=== PATIENT | male | born 1925 | race Caucasian/White ===

== ENCOUNTER 2016-03-25 19:58 | Inpatient (IN) | payer MEDICARE, BC ==
[~2016-03-25] VITALS: Ht 175.3 cm; Wt 76.7 kg
[2016-03-25 20:44] VITALS: BP 138/62
[2016-03-25 20:59] LABS: BASOPHILS % (AUTO) 1.2 % (0.0-2.0); EOSINOPHILS % (AUTO) 0.9 % (0.0-3.0); LYMPHOCYTES % (AUTO) 5.2 % (20.0-45.0); MEAN CORPUSCULAR HEMOGLOBIN 31.7 PG (27.0-31.0); MEAN CORPUSCULAR HGB CONC 32.4 G/DL (32.0-36.0); MEAN CORPUSCULAR VOLUME 98 FL (80-99); MEAN PLATELET VOLUME 7.5 FL (6.5-10.1); MONOCYTES % (AUTO) 13.7 % (1.0-10.0); PLATELET COUNT 219 K/UL (150-450); RED BLOOD COUNT 3.08 M/UL (4.70-6.10); RED CELL DISTRIBUTION WIDTH 18.8 % (11.6-14.8); WHITE BLOOD COUNT 13.1 K/UL (4.8-10.8)
[2016-03-25 21:16] LABS: TROPONIN I < 0.30 ng/mL (<=0.30)
[2016-03-25 21:21] LABS: ALANINE AMINOTRANSFERASE 20 U/L (3-41); ALBUMIN/GLOBULIN RATIO 1.4 (1.0-2.7); ANION GAP 17 (5-15); ASPARTATE AMINO TRANSFERASE 43 U/L (5-40); CALCIUM 8.7 mg/dL (8.6-10.2); CARBON DIOXIDE 21 mEQ/L (20-30); CHLORIDE 88 mEQ/L (98-107); CREATININE 1.3 mg/dL (0.7-1.2); HEMOLYSIS 140; SODIUM 126 mEQ/L (135-145)
[2016-03-25 21:31] LABS: CKMB < 1.5 ng/mL (< 6.7)
[2016-03-25 21:39] LABS: POTASSIUM 4.8 mEQ/L (3.4-4.9)
[2016-03-25 22:19] LABS: APPEARANCE,URINE CLEAR; KETONES,URINE NEGATIVE (NEGATIVE); LEUKOCYTE ESTERASE ,URINE NEGATIVE (NEGATIVE); NITRITE,URINE NEGATIVE (NEGATIVE); PH,URINE 6 (4.5-8.0); PROTEIN,URINE 2+ (NEGATIVE); UROBILINOGEN,URINE NORMAL MG/DL (0.0-1.0)
[2016-03-25] MEDS ORDERED: Tubing IV Secondary IV ONE (22:26)
[2016-03-25] MEDS ORDERED: NS 275ml ONE (22:26)
[2016-03-25 22:36] LABS: BACTERIA,URINE FEW /HPF; RBC,URINE 0-2 /HPF (0 - 0); WBC,URINE 0-2 /HPF (0 - 0)
[2016-03-25] MEDS ORDERED: Oseltamivir 75mg cap ORAL ONE (22:45)
[2016-03-25] MEDS ORDERED: Acetaminophen 650 MG SUPP RECTAL PRN ×2 (23:00)
[2016-03-25] MEDS ORDERED: Nitroglycerin Subl 0.4mg tab (Bottle Of 25) SL PRN (23:00)
[2016-03-25] MEDS ORDERED: Milk of Magnesia 30ml Ud ORAL PRN (23:00)
--- NOTE | 2016-03-25 23:03 | Emergency Room Report ---
History of Present Illness General Chief Complaint: Generalized Weakness Source: Patient, EMS Present Illness HPI 89-year-old male presents ED for evaluation. Patient states he's been having cough and fever since yesterday. Feeling weak. Cough is productive. Febrile in triage. Denies chest pain or shortness of breath. Denies nausea or vomiting. No other aggravating relieving factors. Denies any other associated symptoms. Denies sick contacts or recent travel. Allergies: Coded Allergies: HYDROCODONE (Verified Allergy, Unknown, 03/25/16) PENICILLINS (Verified Allergy, Unknown, 03/25/16) Patient History Past Medical History: HTN Past Surgical History: pacemaker Pertinent Family History: none Social History: Denies: alcohol use, drug use, smoking Immunizations: UTD Reviewed Nursing Documentation: PMH: Agreed, PSxH: Agreed Nursing Documentation-PMH Past Medical History: No History, Except For Hx Cardiac Problems: Yes Hx Hypertension: Yes Hx Pacemaker: Yes Review of Systems All Other Systems: negative except mentioned in HPI Physical Exam Vital Signs Date Time Temp Pulse Resp B/P Pulse Ox O2 Delivery O2 Flow Rate FiO2 03/25/16 19:56 100.0 60 18 134/58 98 Room Air Sp02 EP Interpretation: reviewed, normal General Appearance: no apparent distress, alert, GCS 15, non-toxic Head: normocephalic Eyes: bilateral eye PERRL, bilateral eye normal inspection ENT: normal ENT inspection Neck: normal inspection Respiratory: chest non-tender, normal breath sounds, crackles, speaking full sentences Cardiovascular #1: regular rate, rhythm, no edema Gastrointestinal: normal bowel sounds, non tender, soft, non-distended, no guarding, no rebound Rectal: deferred Genitourinary: no CVA tenderness Musculoskeletal: normal inspection Neurologic: alert, oriented x3, responsive, motor strength/tone normal, sensory intact, speech normal Psychiatric: normal inspection Skin: normal inspection Lymphatic: normal inspection Medical Decision Making Diagnostic Impression: Primary Impression: Influenza Additional Impressions: Pneumonia Qualified Codes: J18.9 - Pneumonia, unspecified organism Fever Qualified Codes: R50.9 - Fever, unspecified ER Course Hospital Course 89-year-old M presenting to ED with fever, cough and crackles Differential diagnoses include: Pneumonia, CHF exacerbation, pneumothorax, fluid overload Clinical course Patient placed on stretcher. On alarm security or surveillance monitor. After initial history and physical, I ordered labs, IV fluids, EKG, chest x-ray, blood cultures, UA. Patient placed on nasal cannula with O2 saturation improving Labs -leukocytosis noted, hemoglobin/hematocrit stable, electrolytes okay, lactate okay troponins negative, influenza positive CXR - R lower lobe infiltrate IVFs given. abx given. tamiflu given. Case discussed with Dr. coppola and he agreed to the patient to his service for further care and support I feel this is a highly complex case requiring extensive working including EKG/ Rhythm strip, Xray/CT/US, Blood/urine lab work, repeat exams while in ED, and administration of strong opiates/narcotics for pain control, admission to hospital or close patient follow up. Diagnosis - pneumonia, influenza, fever Patient admitted to floor in serious condition Labs Test 03/25/16 20:40 03/25/16 21:29 White Blood Count 13.1 K/UL (4.8-10.8) Red Blood Count 3.08 M/UL (4.70-6.10) Hemoglobin 9.8 G/DL (14.2-18.0) Hematocrit 30.1 % (42.0-52.0) Mean Corpuscular Volume 98 FL (80-99) Mean Corpuscular Hemoglobin 31.7 PG (27.0-31.0) Mean Corpuscular Hemoglobin Concent 32.4 G/DL (32.0-36.0) Red Cell Distribution Width 18.8 % (11.6-14.8) Platelet Count 219 K/UL (150-450) Mean Platelet Volume 7.5 FL (6.5-10.1) Neutrophils (%) (Auto) 79.0 % (45.0-75.0) Lymphocytes (%) (Auto) 5.2 % (20.0-45.0) Monocytes (%) (Auto) 13.7 % (1.0-10.0) Eosinophils (%) (Auto) 0.9 % (0.0-3.0) Basophils (%) (Auto) 1.2 % (0.0-2.0) Sodium Level 126 mEQ/L (135-145) Potassium Level 4.8 mEQ/L (3.4-4.9) Chloride Level 88 mEQ/L (98-107) Carbon Dioxide Level 21 mEQ/L (20-30) Anion Gap 17 (5-15) Blood Urea Nitrogen 15 mg/dL (7-23) Creatinine 1.3 mg/dL (0.7-1.2) Estimat Glomerular Filtration Rate mL/min (>60) Glucose Level 119 mg/dL (74-106) Lactic Acid Level 1.80 mmol/L (0.66-2.22) Calcium Level 8.7 mg/dL (8.6-10.2) Total Bilirubin 0.8 mg/dL (0.0-1.2) Aspartate Amino Transf (AST/SGOT) 43 U/L (5-40) Alanine Aminotransferase (ALT/SGPT) 20 U/L (3-41) Alkaline Phosphatase 41 U/L (40-129) Total Creatine Kinase 118 U/L (38-174) Creatine Kinase MB < 1.5 ng/mL (< 6.7) Creatine Kinase MB Relative Index 1.2 Troponin I < 0.30 ng/mL (<=0.30) Pro-B-Type Natriuretic Peptide 3741 pg/mL (0-450) Total Protein 7.0 g/dL (6.6-8.7) Albumin 4.1 g/dL (3.5-5.2) Globulin 2.9 g/dL Albumin/Globulin Ratio 1.4 (1.0-2.7) Urine Color Pale yellow Urine Appearance Clear Urine pH 6 (4.5-8.0) Urine Specific [place] 1.010 (1.005-1.035) Urine Protein 2+ (NEGATIVE) Urine Glucose (UA) Negative (NEGATIVE) Urine Ketones Negative (NEGATIVE) Urine Occult Blood Negative (NEGATIVE) Urine Nitrite Negative (NEGATIVE) Urine Bilirubin Negative (NEGATIVE) Urine Urobilinogen Normal MG/DL (0.0-1.0) Urine Leukocyte Esterase Negative (NEGATIVE) Urine RBC 0-2 /HPF (0 - 0) Urine WBC 0-2 /HPF (0 - 0) Urine Squamous Epithelial Cells None /LPF (NONE/OCC) Urine Bacteria Few /HPF (NONE) EKG Diagnostic Results Rate: normal Rhythm: other - paced ST Segments: no acute changes ASA given to the pt in ED: No Rhythm Strip Diag. Results EP Interpretation: yes Rhythm: NSR, no PVC's, no ectopy Chest X-Ray Diagnostic Results EP Interpretation: Yes Findings: no pneumothorax, no acute cardiopulmonary disease, other - sternotomy wires, cardiomegaly, pacemaker, atelectasis RLL Number of Views: 1 Last Vital Signs Date Time Temp Pulse Resp B/P Pulse Ox O2 Delivery O2 Flow Rate FiO2 03/25/16 20:44 101.5 60 25 138/62 96 Room Air Status: improved Disposition: ADMITTED INPATIENT Condition: Serious Referrals: NON PHYSICIAN (PCP) BROOKLYN JOHN M.D. Mar 25, 2016 23:03
[2016-03-25 23:29] VITALS: BP 127/64
[2016-03-26] VITALS (9 sets, daily range): BP systolic 97–154; BP diastolic 51–71
[2016-03-26] MEDS ORDERED: UNOBMED (00:21)
[2016-03-26 06:47] LABS: BASOPHILS % (AUTO) 1.3 % (0.0-2.0); EOSINOPHILS % (AUTO) 0.5 % (0.0-3.0); LYMPHOCYTES % (AUTO) 12.1 % (20.0-45.0); MEAN CORPUSCULAR HEMOGLOBIN 31.2 PG (27.0-31.0); MEAN CORPUSCULAR HGB CONC 32.4 G/DL (32.0-36.0); MEAN CORPUSCULAR VOLUME 96 FL (80-99); MEAN PLATELET VOLUME 6.9 FL (6.5-10.1); MONOCYTES % (AUTO) 19.3 % (1.0-10.0); NEUTROPHILS % (AUTO) 66.8 % (45.0-75.0); PLATELET COUNT 190 K/UL (150-450); RED BLOOD COUNT 2.67 M/UL (4.70-6.10); RED CELL DISTRIBUTION WIDTH 18.3 % (11.6-14.8); WHITE BLOOD COUNT 7.6 K/UL (4.8-10.8)
[2016-03-26 07:08] LABS: FERRITIN 539 ng/mL (10-230)
[2016-03-26 07:14] LABS: ALANINE AMINOTRANSFERASE 14 U/L (3-41); ALBUMIN/GLOBULIN RATIO 1.7 (1.0-2.7); ANION GAP 11 (5-15); ASPARTATE AMINO TRANSFERASE 20 U/L (5-40); CALCIUM 8.5 mg/dL (8.6-10.2); CARBON DIOXIDE 22 mEQ/L (20-30); CHLORIDE 95 mEQ/L (98-107); CREATININE 1.2 mg/dL (0.7-1.2); MAGNESIUM 1.6 mg/dL (1.7-2.5); SODIUM 128 mEQ/L (135-145); TOTAL PROTEIN 5.7 g/dL (6.6-8.7)
[2016-03-26 07:16] LABS: HEMOLYSIS 3; IRON 33 ug/dL (59-158); TOTAL IRON BINDING CAPACITY 166 ug/dL (250-400)
[2016-03-26] MEDS: Heparin 5000 units/ml inj SUBQ SCH ×2 (09:00→21:29)
[2016-03-26] MEDS ORDERED: Oseltamivir 75mg cap ORAL SCH (09:00)
--- NOTE | 2016-03-26 10:11 | Diagnostic Imaging Report ---
Indication: SOB Technique: One view of the chest Comparison: none Findings: Patient is rotated to the right. There is a left chest pacemaker. There are median sternotomy sutures. Lungs and pleural spaces are clear. Heart size is normal. The aorta is tortuous Impression: No acute process
[2016-03-26] MEDS: TAMIFLU 30 MG ORAL SCH ×2 (13:14→21:28)
[2016-03-26] MEDS: Azithromycin 250mg tab ORAL SCH (14:36)
[2016-03-26] MEDS: Albuterol ud Inhalation HHN SCH ×3 (20:19→23:43)
--- NOTE | 2016-03-26 21:38 | History and Physical Report ---
DATE OF ADMISSION: 03/25/2016 CHIEF COMPLAINT AND REASON FOR HOSPITALIZATION: The patient admitted with cough, influenza, weakness, and probable pneumonia. HISTORY OF PRESENT ILLNESS: The patient has had a cough for several days and had apparently one day of Tamiflu and Zithromax from his primary care physician. The patient presented with coughing, weakness, dizziness, and near syncope. History is significant for aortic valve replacement and permanent pacemaker. He also has a history of thyroid disorder, chronic ischemic heart disease, respiratory problems, elevated PSA, vitamin D deficiency, dyspepsia, nocturia. ALLERGIES: Penicillin. MEDICATIONS: He recently started on Tamiflu and Zithromax for one or two doses, meclizine 12.5 twice a day as needed, pravastatin 20 mg at bedtime, omeprazole one capsule daily, Tylenol with codeine as needed, finasteride one tablet daily. SOCIAL HISTORY: The patient is single. 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 SYSTEM REVIEW: HEENT: There is mild decreased hearing. Vision is good. Post cataract surgery. ENDOCRINE: He is not aware of any diabetes. Apparently there is a history of thyroid disorder. PULMONARY: He denies asthma or chronic cough. CARDIAC: History of aortic valve replacement and pacemaker. He denies myocardial infarction or angina. GASTROINTESTINAL: Denies rectal bleeding or chronic abdominal pain. He has had prior gastrointestinal evaluations. GENITOURINARY: There is a history of BPH. No dysuria or hematuria. NEUROLOGIC: No CVA or seizures. MUSCULOSKELETAL: There is some osteoarthritis. He walks slowly with a walker. HEMATOLOGIC/ONCOLOGIC: Apparently he has had a chronic anemias and seen a wire mill rover in [facility] and chronically anemic. PHYSICAL EXAMINATION: GENERAL: The patient is alert man, having moderate cough, and not in severe distress. VITAL SIGNS: Temperature 98.4, pulse 64, respirations 18, blood pressure 97/51. HEENT: Sclerae nonicteric. Ocular motions intact in all directions. Oral mucosa moist. NECK: No adenopathy or thyroid enlargement. LUNGS: There is a cough with bronchospasm and mild wheezing. HEART: Rhythm is regular. I hear no murmur. ABDOMEN: Soft. No organomegaly or masses. EXTREMITIES: No edema, cyanosis, or clubbing. There are degenerative changes in the knees. NEUROLOGIC: The patient alert and oriented. Cranial nerves are intact. No focal findings. PERTINENT LABORATORY DATA: Initial white count 13.1, hemoglobin 9.8, and repeat 7.6 and 8.3. Chemistries, sodium 126, potassium 4.8, repeat 128 and 5.0, creatinine 1.3. He has a ferritin of 539. Iron saturation of 20%. BNP of 3741. Chest x-ray showed no active disease. IMPRESSION: 1. Cough and influenza A positive. 2. Bronchospasm secondary to above with asthmatic bronchitis. 3. Anemia of chronic disease. 4. History of aortic valve replacement. 5. History of permanent pacemaker. 6. Hyponatremia. PLAN: The patient will be started on Tamiflu and continued on Zithromax. We will watch him for any development into a definite pneumonia. We will continue medical management, put him on a fluid restriction for his hyponatremia. Try to get further database as far as his anemia. Alan Mckeon M.D. DR: Jhon JOB#: [id number] CC:
[2016-03-27] VITALS (7 sets, daily range): BP systolic 107–152; BP diastolic 51–78
[2016-03-27] MEDS: Albuterol ud Inhalation HHN SCH ×6 (00:44→23:00)
[2016-03-27 07:18] LABS: BASOPHILS % (AUTO) 1.4 % (0.0-2.0); LYMPHOCYTES % (AUTO) 23.6 % (20.0-45.0); MEAN CORPUSCULAR HEMOGLOBIN 31.9 PG (27.0-31.0); MEAN CORPUSCULAR HGB CONC 34.2 G/DL (32.0-36.0); MEAN CORPUSCULAR VOLUME 93 FL (80-99); MEAN PLATELET VOLUME 7.8 FL (6.5-10.1); MONOCYTES % (AUTO) 18.8 % (1.0-10.0); NEUTROPHILS % (AUTO) 55.2 % (45.0-75.0); PLATELET COUNT 189 K/UL (150-450); RED BLOOD COUNT 2.98 M/UL (4.70-6.10); RED CELL DISTRIBUTION WIDTH 19.1 % (11.6-14.8); WHITE BLOOD COUNT 4.2 K/UL (4.8-10.8)
[2016-03-27 07:19] LABS: ANION GAP 15 (5-15); CALCIUM 8.6 mg/dL (8.6-10.2); CARBON DIOXIDE 23 mEQ/L (20-30); CHLORIDE 93 mEQ/L (98-107); CREATININE 1.2 mg/dL (0.7-1.2); HEMOLYSIS 2; POTASSIUM 4.3 mEQ/L (3.4-4.9); SODIUM 131 mEQ/L (135-145)
[2016-03-27] MEDS: TAMIFLU 30 MG ORAL SCH ×2 (09:04→18:40)
[2016-03-27] MEDS: Azithromycin 250mg tab ORAL SCH (09:04)
[2016-03-27] MEDS: Heparin 5000 units/ml inj SUBQ SCH ×2 (09:05→20:20)
[2016-03-27] MEDS ORDERED: Vancomycin 1gm/D5W 250ml IVPB ONE ×2 (11:00)
--- NOTE | 2016-03-27 11:43 | General Progress Note ---
Assessment/Plan Problem List: (1) Influenza ICD Codes: J11.1 - Influenza due to unidentified influenza virus with other respiratory manifestations SNOMED: 0248093 (2) Aortic valve endocarditis ICD Codes: I35.8 - Other nonrheumatic aortic valve disorders SNOMED: 55579211, 627559631 (3) SBE (subacute bacterial endocarditis) ICD Codes: I33.0 - Acute and subacute infective endocarditis SNOMED: 52133091 Assessment/Plan start vanco 06/22 bc g+ cocci Subjective Constitutional: Reports: weakness HEENT: Reports: no symptoms Cardiovascular: Reports: no symptoms Respiratory: Reports: cough Gastrointestinal/Abdominal: Reports: no symptoms Genitourinary: Reports: no symptoms Neurologic/Psychiatric: Reports: no symptoms Endocrine: Reports: no symptoms Allergies: Coded Allergies: HYDROCODONE (Verified Allergy, Unknown, 03/25/16) PENICILLINS (Verified Allergy, Unknown, 03/25/16) Objective Last 24 Hour Vital Signs Date Time Temp Pulse Resp B/P Pulse Ox O2 Delivery O2 Flow Rate FiO2 03/27/16 08:26 98.4 68 20 118/66 94 Room Air 03/27/16 07:30 68 20 Room Air 21 03/27/16 07:20 21 03/27/16 07:20 66 20 Room Air 03/27/16 07:20 66 20 95 Room Air 21 03/27/16 04:00 97.7 62 20 146/73 93 Room Air 03/27/16 03:37 Room Air 03/27/16 03:34 Room Air 03/27/16 01:00 69 03/27/16 00:48 63 18 100 Room Air 03/27/16 00:46 63 18 98 Room Air 03/27/16 00:00 98.8 64 19 107/51 95 Room Air 03/26/16 23:53 Room Air 03/26/16 23:53 Room Air 03/26/16 20:30 60 18 99 Room Air 03/26/16 20:29 59 18 100 Room Air 03/26/16 20:28 60 18 Room Air 03/26/16 20:00 98.6 61 18 122/65 96 Room Air 03/26/16 16:27 61 65 78 03/26/16 16:26 98.2 61 18 132/71 96 Room Air 03/26/16 13:00 62 68 83 03/26/16 12:00 97.9 62 18 104/56 97 Room Air Intake and Output 03/26/16 03/27/16 19:00 07:00 Intake Total 500 ml 320 ml Output Total 600 ml Balance 500 ml -280 ml Intake Oral 500 ml 320 ml Output Urine Total 600 ml # Voids 3 1 Laboratory Tests 03/26/16 18:10: Urine Osmolality [Pending] 03/27/16 04:50: White Blood Count 4.2L, Red Blood Count 2.98L, Hemoglobin 9.5L, Hematocrit 27.7L , Mean Corpuscular Volume 93, Mean Corpuscular Hemoglobin 31.9H, Mean Corpuscular Hemoglobin Concent 34.2, Red Cell Distribution Width 19.1H, Platelet Count 189, Mean Platelet Volume 7.8, Neutrophils (%) (Auto) 55.2, Lymphocytes (%) (Auto) 23.6, Monocytes (%) (Auto) 18.8H, Eosinophils (%) (Auto) 1.0, Basophils (%) (Auto) 1.4, Sodium Level 131L, Potassium Level 4.3, Chloride Level 93L, Carbon Dioxide Level 23, Anion Gap 15, Blood Urea Nitrogen 16, Creatinine 1.2, Estimat Glomerular Filtration Rate , Glucose Level 95, Osmolality [Pending], Calcium Level 8.6, Thyroid Stimulating Hormone (TSH) 3.630 , Free Thyroxine 1.09 Height (Feet): 5 Height (Inches): 9.00 Weight (Pounds): 169 General Appearance: no apparent distress, alert EENT: normal ENT inspection Neck: normal alignment Cardiovascular: normal rate, regular rhythm Respiratory/Chest: lungs clear, normal breath sounds Abdomen: non tender, soft Extremities: other - no edema Neurologic: application performance engineer II-XII grossly normal BATSHEVA HOLLEY Mar 27, 2016 11:43
[2016-03-27] MEDS: Vancomycin 1250mg/D5W 250ml IVPB SCH ×2 (13:32)
[2016-03-28] VITALS: BP 150/75
--- NOTE | 2016-03-28 02:17 | Consultation ---
DATE OF CONSULTATION: 03/27/2016 CARDIOLOGY CONSULTATION REQUESTING PHYSICIAN: Alan Mckeon M.D. REASON FOR CONSULTATION: Evaluate for a prosthetic valve endocarditis. HISTORY OF PRESENT ILLNESS: This is an 89-year-old male, who was admitted to the hospital yesterday with persistent cough, fevers, and congestion. He also had an episode of near syncope. He was started on Tamiflu and Zithromax with a positive influenza swab noted. He was admitted to the hospital and continued on this regimen, but was noted to have positive blood cultures today with preliminary Gram-positive cocci growing in 2/2 blood vials. PAST MEDICAL HISTORY: Notable for an aortic valve replacement, permanent pacemaker, history of elevated PSA, ischemic heart disease, vitamin D deficiency, prostatic hypertrophy, and chronic anemia. MEDICATIONS: Reviewed and reconciled. SOCIAL HISTORY: He lives with a blow molder. ALLERGIES: Penicillin. REVIEW OF SYSTEMS: He is hard of hearing. His vision is stable. He has had cataract surgery. There is no history of diabetes. He has been on thyroid replacement. He does not know his cholesterol level. There is no history of asthma. He does have a pacemaker. He also has an aortic valve replacement. It is unclear when his device was last checked. He has not had any exertional chest pain and he has not noted swelling of his legs and difficulty breathing. He has no history of melena or bright red blood per rectum. He is on medications for prostatic hypertrophy and has been voiding adequately. There is no history of seizure or stroke. He walks with a walker. PHYSICAL EXAMINATION: VITAL SIGNS: Afebrile, blood pressure 118/66, pulse 68, respirations 20, and oxygen saturation 93% to 98% on room air. Temporal wasting. HEENT: Pale conjunctivae. Arcus senilis. Oropharynx clear. NECK: Supple. Jugular venous pressure normal. No bruits. LUNGS: With few rhonchi. CARDIAC: Regular rhythm and rate. Normal S1 and S2 with a 1/6 systolic murmur at the base. ABDOMEN: Soft and nontender. EXTREMITIES: Without edema. SKIN: Without any rash. Digits are without any nodes. LABORATORY AND DIAGNOSTIC DATA: White count 4.2 and hemoglobin 9.5. Sodium 131, potassium 4.3, chloride 93, bicarbonate 23, BUN 16, and creatinine 1.2. TSH 3.6. Echocardiogram revealed normal ejection fraction, aortic valve sclerosis, moderate regurgitation of the aortic valve, mild regurgitation of the mitral valve, and no obvious vegetations seen. IMPRESSION: This is an elderly gentleman with Gram-positive cocci bacteremia and prosthetic aortic valve as well as a permanent pacemaker. In this clinical setting, there is a high risk for prosthetic valve endocarditis. Other problems include hypomagnesemia, acute on chronic diastolic congestive heart failure, chronic anemia, and influenza A. RECOMMENDATIONS: 1. Await final blood culture results. 2. Consider transesophageal echocardiogram. 3. IV magnesium replacement. 4. therapy for endocarditis at this time. 5. We will review transthoracic echocardiogram study and make followup recommendations. Jayjay Peck M.D. DR: KATY JOB#: [id number] CC:
[2016-03-28] MEDS: Albuterol ud Inhalation HHN SCH ×6 (03:22→22:33)
[2016-03-28 04:00] VITALS: BP 127/60
[2016-03-28 08:00] VITALS: BP 130/71
[2016-03-28] MEDS: TAMIFLU 30 MG ORAL SCH ×2 (09:35→20:59)
[2016-03-28] MEDS: Azithromycin 250mg tab ORAL SCH (09:35)
[2016-03-28] MEDS: Heparin 5000 units/ml inj SUBQ SCH ×2 (09:46→20:19)
[2016-03-28 09:56] LABS: FOLIC ACID 10.7 ng/mL (3.1-17.5)
--- NOTE | 2016-03-28 10:10 | General Progress Note ---
Assessment/Plan Problem List: (1) Influenza ICD Codes: J11.1 - Influenza due to unidentified influenza virus with other respiratory manifestations SNOMED: 2681221 (2) Aortic valve endocarditis ICD Codes: I35.8 - Other nonrheumatic aortic valve disorders SNOMED: 24773279, 260564725 (3) SBE (subacute bacterial endocarditis) ICD Codes: I33.0 - Acute and subacute infective endocarditis SNOMED: 58289475 Assessment/Plan start vanco 06/22 bc g+ cocci--coag neg staph, to discuss, in view of prosthesis may need 6 week therapy, possible herbert Subjective Constitutional: Reports: weakness HEENT: Reports: no symptoms Cardiovascular: Reports: no symptoms Respiratory: Reports: cough Gastrointestinal/Abdominal: Reports: other - heartburn Genitourinary: Reports: no symptoms Neurologic/Psychiatric: Reports: no symptoms Endocrine: Reports: no symptoms Hematologic/Lymphatic: Reports: no symptoms Allergies: Coded Allergies: HYDROCODONE (Verified Allergy, Unknown, 03/25/16) PENICILLINS (Verified Allergy, Unknown, 03/25/16) Objective Last 24 Hour Vital Signs Date Time Temp Pulse Resp B/P Pulse Ox O2 Delivery O2 Flow Rate FiO2 03/28/16 08:00 98.2 66 18 130/71 98 Room Air 03/28/16 07:51 71 18 95 Room Air 03/28/16 07:51 71 18 95 Room Air 03/28/16 04:00 100.0 68 20 127/60 99 Room Air 03/28/16 03:22 76 20 98 Room Air 03/28/16 03:22 70 20 94 Room Air 03/28/16 00:00 98.4 67 18 150/75 94 Room Air 03/27/16 23:49 Room Air 03/27/16 23:48 Room Air 03/27/16 22:06 74 20 100 Room Air 03/27/16 22:00 21 03/27/16 22:00 72 18 95 Room Air 03/27/16 20:29 98.1 71 19 152/64 98 Room Air 03/27/16 15:53 70 78 101 03/27/16 15:52 98.0 70 20 123/64 97 Room Air 03/27/16 15:19 73 20 100 Room Air 03/27/16 15:09 71 20 98 Room Air 03/27/16 12:06 72 98 03/27/16 12:00 98.4 72 20 123/78 94 Room Air 03/27/16 11:35 64 20 98 Room Air 21 03/27/16 11:30 21 03/27/16 11:30 63 18 95 Room Air 21 Intake and Output 03/27/16 03/28/16 19:00 07:00 Intake Total 900 ml 260 ml Output Total 650 ml Balance 900 ml -390 ml Intake Oral 600 ml 260 ml IV Total 300 ml Output Urine Total 650 ml # Voids 2 1 Height (Feet): 5 Height (Inches): 9.00 Weight (Pounds): 169 General Appearance: no apparent distress EENT: normal ENT inspection Neck: normal alignment Cardiovascular: regular rhythm Respiratory/Chest: lungs clear, normal breath sounds Abdomen: soft, no organomegaly Edema: no edema noted Arm (L), no edema noted Arm (R), no edema noted Leg (L), no edema noted Leg (R), no edema noted Pedal (L), no edema noted Pedal (R), no edema noted Generalized BATSHEVA HOLLEY Mar 28, 2016 10:10
[2016-03-28] MEDS: guaiFENesin w/Codeine 5ml Liq ud ORAL PRN ×2 (10:43→14:41)
[2016-03-28 12:00] VITALS: BP_SYST 108; BP_SYST 146; BP_DIAS 63; BP_DIAS 64
--- NOTE | 2016-03-28 12:38 | Infectious Diseases Prog Note ---
Assessment/Plan Assessment/Plan Full consult dictated: A) 1) coagulase neg staph bacteremia, sepsis, sirs, fevers, leukocytosis 2) high risk for endocarditis with hx of aortic valve replacement 3) ? pacemaker infection 4) influenza A +, uri/bronchitis, ? pna, initial chest x-ray negative 5) avr, pacemaker, elevated psa, ihd, bph, anemia, vitamin d deficiency, thyroid dx, nocturia, dyspepsia 6) allergies - pcn, hydrocodone, fh-nc, sh-negative 7) mar noted, notes and records reviewed 8) d/w RN P) 1) vancomycin, tamiflu, ceftriaxone, azithromycin 2) check labs, surveillance blood cultures, echo, chest x-ray, may need CHRISTI 3) will likely need 6 weeks of vancomycin iv abx to treat endocarditis 4) continue other treatment per Dr. Mckeon and Dr. Peck 5) orders entered and noted 6) thanks Subjective Allergies: Coded Allergies: HYDROCODONE (Verified Allergy, Unknown, 03/25/16) PENICILLINS (Verified Allergy, Unknown, 03/25/16) Objective Vital Signs Last 24 Hour Vital Signs Date Time Temp Pulse Resp B/P Pulse Ox O2 Delivery O2 Flow Rate FiO2 03/28/16 11:07 Room Air 21 03/28/16 11:07 Room Air 03/28/16 09:00 66 03/28/16 08:00 98.2 66 18 130/71 98 Room Air 03/28/16 07:51 71 18 95 Room Air 03/28/16 07:51 71 18 95 Room Air 03/28/16 04:00 100.0 68 20 127/60 99 Room Air 03/28/16 03:22 76 20 98 Room Air 03/28/16 03:22 70 20 94 Room Air 21 03/28/16 00:00 98.4 67 18 150/75 94 Room Air 03/27/16 23:49 Room Air 03/27/16 23:48 Room Air 03/27/16 22:06 74 20 100 Room Air 03/27/16 22:00 21 03/27/16 22:00 72 18 95 Room Air 21 03/27/16 20:29 98.1 71 19 152/64 98 Room Air 03/27/16 15:53 70 78 101 03/27/16 15:52 98.0 70 20 123/64 97 Room Air 03/27/16 15:19 73 20 100 Room Air 03/27/16 15:09 71 20 98 Room Air Height (Feet): 5 Height (Inches): 9.00 Weight (Pounds): 169 Microbiology Date/Time Source Procedure Growth Status 03/25/16 20:50 Blood Blood Culture - Preliminary Staphylococcus Sp Coag Neg Resulted 03/25/16 20:35 Blood Blood Culture - Preliminary Staphylococcus Sp Coag Neg Resulted 03/25/16 21:28 Nasal Nares Influenza Types A,B Antigen (JUDY) - Final Complete Current Medications Medications (Trade) Dose Ordered Sig/Dia Route PRN Reason Start Time Stop Time Status Last Admin Dose Admin Acetaminophen (Tylenol) 650 mg Q4H PRN ORAL Mild Pain (Pain Scale 1-3) 03/25/16 23:00 04/24/16 22:59 03/27/16 00:43 Acetaminophen (Tylenol) 650 mg Q4H PRN ORAL fever 03/25/16 23:00 04/24/16 22:59 Acetaminophen (Tylenol) 650 mg Q4H PRN RECTAL Mild Pain (Pain Scale 1-3) 03/25/16 23:00 04/24/16 22:59 Acetaminophen (Tylenol) 650 mg Q4H PRN RECTAL fever 03/25/16 23:00 04/24/16 22:59 Al Hydroxide/Mg Hydroxide (Mylanta) 30 ml EVERY 2 HOURS PRN ORAL Heartburn 03/27/16 20:00 04/26/16 19:59 03/27/16 20:19 Albuterol Sulfate (Proventil) 2.5 mg Q4HRT HHN 03/26/16 15:00 03/31/16 14:59 03/28/16 03:22 Azithromycin (Zithromax) 250 mg DAILY ORAL 03/26/16 13:30 04/02/16 13:29 03/28/16 09:35 Ceftriaxone Sodium/Sodium Chloride (Rocephin/Sodium Chloride 50ml bag) 50 ml @ 100 mls/hr DAILY IVPB 03/26/16 14:00 04/02/16 13:59 03/28/16 09:35 Dextrose STAT PRN IV Hypoglycemia 03/25/16 23:00 04/24/16 22:59 Guaifenesin/ Codeine Phosphate (Robitussin with codeine) 5 ml Q4H PRN ORAL For Cough 03/28/16 10:15 04/27/16 10:14 03/28/16 10:43 Heparin Sodium (Porcine) (Heparin 5000 units/ml) 5,000 units EVERY 12 HOURS SUBQ 03/26/16 09:00 04/25/16 08:59 03/28/16 09:46 Magnesium Hydroxide (Mom) 30 ml HSPRN PRN ORAL Constipation 03/25/16 23:00 04/24/16 22:59 Nitroglycerin (Ntg) 0.4 mg Q5M X 3 DOSES PRN SL Prn Chest Pain 03/25/16 23:00 04/24/16 22:59 Non-Formulary Medication (Non-Formulary Med) 1 ea BID ORAL 03/26/16 12:00 03/30/16 18:01 03/28/16 09:35 Ondansetron HCl (Zofran) 4 mg Q6H PRN IVP Nausea & Vomiting 03/25/16 23:00 04/24/16 22:59 Ranitidine HCl (Zantac) 300 mg BEDTIME ORAL 03/27/16 21:00 04/26/16 20:59 03/27/16 20:19 Vancomycin HCl 1 ea 1 ea DAILY PRN MISC PER RX PROTOCOL 03/27/16 11:15 04/26/16 09:29 Vancomycin HCl/ Dextrose (Vancomycin/D5W 250ml) 250 ml @ 166.667 mls/hr Q24H IVPB 03/27/16 12:00 04/01/16 11:59 03/27/16 13:32 LEAH BURK Mar 28, 2016 12:37
[2016-03-28] MEDS: Vancomycin 1250mg/D5W 250ml IVPB SCH ×2 (14:09)
--- NOTE | 2016-03-28 14:23 | Cardiology Report ---
APPROVED REPORT EXAM: Two-dimensional and M-mode echocardiogram with Doppler and color Doppler. M-Mode DIMENSIONS IVSd1.1 (0.7-1.1cm)Left Atrium (MM)3.9 (1.6-4.0cm) LVDd5.3 (3.5-5.6cm)Aortic Root3.5 (2.0-3.7cm) PWd1.1 (0.7-1.1cm)Aortic Cusp Exc.2.0 (1.5-2.0cm) LVDs3.2 (2.5-4.0cm) PWs1.8 cm Technically difficult study due to poor acoustic windows patient altered mental status impatient and lung interferance. Study quality precludes accurate assessment of regional wall motion. Hyperdynamic left ventricular function, however inferiorowall function was poorly visualized No left ventricular hypertrophy. Mild Bi-atrial enlargment. Focal aortic valve sclerosis with adequate cusp excursion Pulmonic valve not well visualized. Normal tricuspid valve structure. IVC not obtainable. pacing wire in RV A color flow and spectral Doppler study was performed and revealed: Mild aortic regurgitation. Mild mitral regurgitation. Mitral inflow velocities indicates reduced left ventricular relaxation diastolic dysfunction. Grade one. Trace tricuspid regurgitation. Trace pulmonic regurgitation present.
[2016-03-28] MEDS: Benzonatate 100mg Perles ORAL SCH ×2 (15:07→20:15)
[2016-03-28 16:00] VITALS: BP 139/73
[2016-03-29] VITALS: BP 130/59
--- NOTE | 2016-03-29 00:08 | Consultation ---
DATE OF CONSULTATION: 03/28/2016 INFECTIOUS DISEASE CONSULTATION CONSULTING PHYSICIAN: Moira Mccray M.D. ATTENDING PHYSICIAN: Alan Mckeon M.D. REASON FOR CONSULTATION: Coagulase-negative Staphylococcus bacteremia, endocarditis, possible sepsis, fevers, leukocytosis, influenza A infection, and possible respiratory infection. CHIEF COMPLAINT: The patient's chief complaint coming in is fever and pneumonia. HISTORY OF PRESENT ILLNESS: This is a very pleasant 89-year-old male, who has a history of aortic valve replacement and also pacemaker. The patient was noted to have cough and congestion. Influenza screen for influenza A was positive. The patient has been started on Tamiflu, adjusted per his renal function. The patient also has a significant respiratory infection with a question if he has community-acquired pneumonia. He certainly has upper respiratory infection and bronchitis. Initial chest x-ray was negative. The patient has been started on azithromycin adn Rocephin. The patient also has positive blood cultures for coagulase-negative Staphylococcus and likely septic , leukocytosis, and fevers. Infectious Disease consultation was requested for antibiotic management of this patient. The patient will be continued on antibiotics pending final workup. Case was discussed with Dr. Mckeon and the patient. Case was discussed with RN. PAST MEDICAL HISTORY: Includes the history of following: The patient has a past medical history of ischemic heart disease, history of aortic valve replacement, history of pacemaker, history of elevated PSA, BPH, history of anemia, history of vitamin D deficiency, history of thyroid disorder disease, history of nocturia, and history of dyspepsia. He also has a history of hypertension, looks like per the records. Please see past medical history in medical order. MEDICATIONS: Upon reviewing the MAR, the patient is on the following medications. He is on Robitussin, Zantac, Mylanta, vancomycin, Rocephin, azithromycin, and tamiflu. He is on albuterol treatment. His tamiflu is adjusted per renal function. It is under non-formally and discussed with the pharmacy. He is on heparin. He is on acetaminophen. He is on MOM, Zofran, and nitroglycerin. He is on IV fluids. Please see medications in medical order. ALLERGIES: The patient is allergic to hydrocodone and penicillin. He has tolerated Rocephin. FAMILY HISTORY: Noncontributory. Negative for exposure to tuberculosis or cancer. SOCIAL HISTORY: At this time is negative for smoking, alcohol, and drug abuse. REVIEW OF SYSTEMS: Constitutional: The patient has generalized weakness, fatigue, fever, and chlls. No weight loss. Head And Neck: No thrush, dysphagia, or sinus tenderness. Pulmonary: He has congestion and shortness of breath. No significant secretions. He has a cough. Cardiac: No chest pain. Gastrointestinal: No nausea, vomiting, or diarrhea. Genitourinary: No dysuria or frequency. Extremities: No extremity pain. SKIN: No rash or itching. NEUROLOGIC: No seizures. He does have fatigue. PHYSICAL EXAMINATION: GENERAL: Alert and responsive. He seems congested, but alert and oriented x3, no acute distress. VITAL SIGNS: Temperature 98.2 degrees, pulse rate 66, respiratory rate 18, blood pressure 130/71, and oxygen saturating 90%. T-max is 101.5 degrees on admission. Respiratory rate on admission was 25. His pulse rate on admission was noted. HEAD AND NECK: Oral exam, no thrush. Eye exam, no icterus. Neck is supple. No JVD. No sinus tenderness. Normocephalic. No facial droop. No neck stiffness. LUNGS: Few bilateral rhonchi. Questionable rales. HEART: Regular. Possible 1/6 systolic murmur. No murmurs or gallop. ABDOMEN: Soft. Positive bowel sounds. SKIN: No rash or dermatitis. MUSCULOSKELETAL: No effusions or contractures. EXTREMITIES: Legs are without cellulitis. PERIPHERAL VASCULAR: No cyanosis or gangrene. RECTAL: Deferred. GENITOURINARY: No Diaz. LINES: Line sites is without phlebitis. NEUROLOGIC: Intact. Nonfocal. Alert and oriented x3. LABORATORY DATA: Laboratory data is as follows. Leukocyte esterase is negative. Creatinine is 1.2. Sodium 131. White count 4.2 and hemoglobin 9.5. White count on admission 13.1. UA had leukocyte esterase negative. Chest x-ray initially was negative for pneumonia. This was noted and reviewed. Influenza screen was positive for influenza A. His blood cultures are 4/4, coagulase-negative Staph. ASSESSMENT: 1. This is an 89-year-old male, who has multiple infectious issues. He has a coagulase-negative Staph bacteremia, which is 4/4 bottles. In view of his history of aortic valve replacement, I would consider this a true pathogen and also because one of the most common organisms for prosthetic valve endocarditis is a coagulase-negative Staphylococcus bacteremia, thus the patient likely has coagulase-negative Staphylococcus bacteremia and also high likelihood of endocarditis. The patient also has a risk for pacemaker infection. The patient also is possibly septic with systemic inflammatory response syndrome criteria, fevers, elevated white count and respiratory rate, and infectious disease source. The patient also has a influenza A positive and has risk for pneumonia. He certainly has upper respiratory infection bronchitis. We will check follow up chest x-ray. In view of the above differential diagnoses, I would continue azithromycin and Rocephin to cover community-acquired pneumonia. I will continue vancomycin to cover coagulase-negative Staphylococcus bacteremia and possible endocarditis and I will conitnue tamiflu, it looks like he had it for about 48 hours and another 72 hours. Continue antiobiotics. Check surveillance blood cultures. Check echo and check followup chest x-ray. Also, I would consider a CHRISTI if indicated, but we will review the 2D echo. Continue also Pulmonary treatment. The patient is in isolation for influenza A. This was discussed with Dr. Mckeon and also discussed with the patient at length and the RN. 2. The patient has hypertension. Blood pressure control per primary and consultants. 3. Aortic valve replacement. 4. Pacemaker. 5. Elevated PSA. 6. Benign prostatic hypertrophy. 7. Ischemic heart disease. 8. Anemia. 9. Vitamin D deficiency. 10. Thyroid disease. 11. Nocturia. 12. Dyspepsia. 13. Allergy to penicillin and hydrocodone. Tolerates cephalosporins. 14. Social history is negative. 15. MAR was noted. 16. Case was discussed with RN. 17. Notes and records were reviewed. 18. Case was discussed with and with pharmacy about tamiflu dosing for renal function. Thank you. I will follow. Moira Mccray M.D. DR: FELIZ JOB#: [id number] CC:
[2016-03-29] MEDS: Albuterol ud Inhalation HHN SCH ×6 (03:00→23:00)
[2016-03-29 04:00] VITALS: BP 127/72
[2016-03-29 08:00] VITALS: BP 146/67
[2016-03-29] MEDS: Benzonatate 100mg Perles ORAL SCH ×3 (09:34→19:56)
[2016-03-29] MEDS: Azithromycin 250mg tab ORAL SCH (09:34)
[2016-03-29] MEDS ORDERED: Heparin 2000 units/Ns 1000ml INJ SCH (09:45)
[2016-03-29] MEDS ORDERED: Sodium Bicarbonate 8.4% 50ml Inj IV SCH (09:45)
[2016-03-29] MEDS ORDERED: Lidocaine 1% Plain 30 ml INJ SCH (09:45)
[2016-03-29 10:58] LABS: BASOPHILS % (AUTO) 2.4 % (0.0-2.0); EOSINOPHILS % (AUTO) 4.7 % (0.0-3.0); LYMPHOCYTES % (AUTO) 21.9 % (20.0-45.0); MEAN CORPUSCULAR HEMOGLOBIN 30.2 PG (27.0-31.0); MEAN CORPUSCULAR HGB CONC 31.5 G/DL (32.0-36.0); MEAN CORPUSCULAR VOLUME 96 FL (80-99); MEAN PLATELET VOLUME 6.9 FL (6.5-10.1); MONOCYTES % (AUTO) 16.9 % (1.0-10.0); NEUTROPHILS % (AUTO) 54.1 % (45.0-75.0); PLATELET COUNT 204 K/UL (150-450); RED CELL DISTRIBUTION WIDTH 19.3 % (11.6-14.8); WHITE BLOOD COUNT 5.3 K/UL (4.8-10.8)
[2016-03-29 11:13] LABS: ANION GAP 14 (5-15); CALCIUM 8.8 mg/dL (8.6-10.2); CARBON DIOXIDE 23 mEQ/L (20-30); CHLORIDE 95 mEQ/L (98-107); CREATININE 1.3 mg/dL (0.7-1.2); HEMOLYSIS 0; POTASSIUM 4.8 mEQ/L (3.4-4.9); SODIUM 132 mEQ/L (135-145)
[2016-03-29] MEDS: Heparin 5000 units/ml inj SUBQ SCH ×2 (11:30→20:07)
[2016-03-29] MEDS: TAMIFLU 30 MG ORAL SCH ×2 (11:31→19:56)
--- NOTE | 2016-03-29 11:52 | Diagnostic Imaging Report ---
Indication: Chest Pain Comparison: None A single view chest radiograph was obtained. Findings: Lungs are clear. Aorta is ectatic. Heart size is normal. Sternotomy noted. Bones are osteopenic. Impression: No acute findings
[2016-03-29 12:00] VITALS: BP 120/83
[2016-03-29] MEDS: Vancomycin 1250mg/D5W 250ml IVPB SCH ×2 (12:00)
[2016-03-29 16:00] VITALS: BP_SYST 105; BP_SYST 147; BP_DIAS 58; BP_DIAS 76
--- NOTE | 2016-03-29 16:53 | General Progress Note ---
Assessment/Plan Problem List: (1) Influenza ICD Codes: J11.1 - Influenza due to unidentified influenza virus with other respiratory manifestations SNOMED: 4855500 (2) Aortic valve endocarditis ICD Codes: I35.8 - Other nonrheumatic aortic valve disorders SNOMED: 54533061, 223537126 (3) SBE (subacute bacterial endocarditis) ICD Codes: I33.0 - Acute and subacute infective endocarditis SNOMED: 16269128 Assessment/Plan start vanco / bc g+ cocci--coag neg staph, to discuss, in view of prosthesis may need 6 week therapy, possible herbert--declined, d/w patient and dpoa need for picc Subjective Constitutional: Reports: weakness HEENT: Reports: no symptoms Cardiovascular: Reports: no symptoms Respiratory: Reports: cough Gastrointestinal/Abdominal: Reports: no symptoms Genitourinary: Reports: no symptoms Neurologic/Psychiatric: Reports: no symptoms Endocrine: Reports: no symptoms Hematologic/Lymphatic: Reports: anemia Allergies: Coded Allergies: HYDROCODONE (Verified Allergy, Unknown, 03/25/16) PENICILLINS (Verified Allergy, Unknown, 03/25/16) Objective Last 24 Hour Vital Signs Date Time Temp Pulse Resp B/P Pulse Ox O2 Delivery O2 Flow Rate FiO2 03/29/16 15:29 Room Air 21 03/29/16 15:29 101 18 99 Room Air 03/29/16 12:00 97.2 79 18 120/83 99 Room Air 03/29/16 11:29 76 18 98 Room Air 03/29/16 11:29 Room Air 03/29/16 09:00 76 03/29/16 08:00 97.7 70 18 146/67 97 Room Air 03/29/16 07:35 71 18 97 Room Air 03/29/16 07:35 Room Air 21 03/29/16 04:00 98.1 67 19 127/72 98 Room Air 03/29/16 03:25 Room Air 03/29/16 03:25 Room Air 03/29/16 01:00 65 03/29/16 00:00 97.7 65 20 130/59 96 Room Air 03/28/16 22:34 Room Air 03/28/16 22:33 Room Air 03/28/16 20:00 70 18 98 Room Air 21 03/28/16 20:00 Room Air 03/28/16 17:36 97.2 Intake and Output 03/28/16 03/29/16 19:00 07:00 Intake Total 620 ml 120 ml Output Total 250 ml 650 ml Balance 370 ml -530 ml Intake Oral 320 ml 120 ml IV Total 300 ml Output Urine Total 250 ml 650 ml # Voids 2 1 Laboratory Tests 03/29/16 09:50: White Blood Count 5.3, Red Blood Count 3.10L, Hemoglobin 9.3L, Hematocrit 29.7L , Mean Corpuscular Volume 96, Mean Corpuscular Hemoglobin 30.2, Mean Corpuscular Hemoglobin Concent 31.5L, Red Cell Distribution Width 19.3H, Platelet Count 204, Mean Platelet Volume 6.9, Neutrophils (%) (Auto) 54.1, Lymphocytes (%) (Auto) 21.9, Monocytes (%) (Auto) 16.9H, Eosinophils (%) (Auto) 4.7H, Basophils (%) (Auto) 2.4H, Sodium Level 132L, Potassium Level 4.8, Chloride Level 95L, Carbon Dioxide Level 23, Anion Gap 14, Blood Urea Nitrogen 14, Creatinine 1.3H, Estimat Glomerular Filtration Rate , Glucose Level 93, Calcium Level 8.8 03/29/16 10:00: Vancomycin Level Trough 12.1H Height (Feet): 5 Height (Inches): 9.00 Weight (Pounds): 169 General Appearance: no apparent distress, alert EENT: normal ENT inspection Neck: normal alignment Cardiovascular: normal rate Respiratory/Chest: lungs clear Abdomen: non tender Edema: no edema noted Arm (L), no edema noted Arm (R), no edema noted Leg (L), no edema noted Leg (R), no edema noted Pedal (L), no edema noted Pedal (R), no edema noted Generalized 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
--- NOTE | 2016-03-29 17:20 | Infectious Diseases Prog Note ---
Assessment/Plan Assessment/Plan A) 1) coagulase neg staph bacteremia, sepsis, sirs, fevers, leukocytosis - leukocytosis and fevers resolved 2) high risk for endocarditis with hx of aortic valve replacement 3) ? 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 CHRISTI would change treatment plan 3) finish 5 day tamiflu coruse 4) continue other treatment per Dr. Mckeon and Dr. Peck 5) orders entered and noted 6) d/w patient at length about above and need for abx 7) await picc line 8) time spent - 30 plus minutes Subjective Constitutional: Denies: fever HEENT: Denies: congestion Respiratory: Denies: shortness of breath Cardiovascular: Denies: chest pain Gastrointestinal/Abdominal: Denies: diarrhea, nausea, vomiting Genitourinary: Denies: dysuria Neurologic: Denies: headache, numbness, weakness Psychiatric: Denies: depression Skin: Denies: rash Musculoskeletal: Denies: pain Allergies: Coded Allergies: HYDROCODONE (Verified Allergy, Unknown, 03/25/16) PENICILLINS (Verified Allergy, Unknown, 03/25/16) Objective Vital Signs Last 24 Hour Vital Signs Date Time Temp Pulse Resp B/P Pulse Ox O2 Delivery O2 Flow Rate FiO2 03/29/16 15:29 Room Air 03/29/16 15:29 101 18 99 Room Air 03/29/16 12:00 97.2 79 18 120/83 99 Room Air 03/29/16 11:29 76 18 98 Room Air 03/29/16 11:29 Room Air 03/29/16 09:00 76 03/29/16 08:00 97.7 70 18 146/67 97 Room Air 03/29/16 07:35 71 18 97 Room Air 03/29/16 07:35 Room Air 03/29/16 04:00 98.1 67 19 127/72 98 Room Air 03/29/16 03:25 Room Air 03/29/16 03:25 Room Air 03/29/16 01:00 65 03/29/16 00:00 97.7 65 20 130/59 96 Room Air 03/28/16 22:34 Room Air 03/28/16 22:33 Room Air 03/28/16 20:00 70 18 98 Room Air 21 03/28/16 20:00 Room Air 03/28/16 17:36 97.2 Height (Feet): 5 Height (Inches): 9.00 Weight (Pounds): 169 General Appearance: no acute distress HEENT: normocephalic, atraumatic, anicteric, mucous membranes moist, PERRL, EOMI, pharynx normal, supple, no JVD Respiratory/Chest: lungs clear, normal breath sounds, no respiratory distress, no accessory muscle use Cardiovascular: normal rate, regular rhythm, no gallop/murmur - no change in 03/26 murmur, no JVD Abdomen: normal bowel sounds, soft, non tender, no organomegaly, non distended Genitourinary: other - no hurley Extremities: no cyanosis Skin: no rash, no ulcers 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, alert, oriented x 3 Lymphatic: no neck adenopathy Musculoskeletal: no effusion Objective chest x-ray - nad, no consolidation, no pna Microbiology Date/Time Source Procedure Growth Status 03/25/16 20:50 Blood Blood Culture - Final Staphylococcus Sp Coag Neg Complete 03/25/16 21:28 Nasal Nares Influenza Types A,B Antigen (JUDY) - Final Complete Laboratory Tests Test 03/29/16 09:50 03/29/16 10:00 White Blood Count 5.3 K/UL (4.8-10.8) Red Blood Count 3.10 M/UL (4.70-6.10) L Hemoglobin 9.3 G/DL (14.2-18.0) L Hematocrit 29.7 % (42.0-52.0) L Mean Corpuscular Volume 96 FL (80-99) Mean Corpuscular Hemoglobin 30.2 PG (27.0-31.0) Mean Corpuscular Hemoglobin Concent 31.5 G/DL (32.0-36.0) L Red Cell Distribution Width 19.3 % (11.6-14.8) H Platelet Count 204 K/UL (150-450) Mean Platelet Volume 6.9 FL (6.5-10.1) Neutrophils (%) (Auto) 54.1 % (45.0-75.0) Lymphocytes (%) (Auto) 21.9 % (20.0-45.0) Monocytes (%) (Auto) 16.9 % (1.0-10.0) H Eosinophils (%) (Auto) 4.7 % (0.0-3.0) H Basophils (%) (Auto) 2.4 % (0.0-2.0) H Sodium Level 132 mEQ/L (135-145) L Potassium Level 4.8 mEQ/L (3.4-4.9) Chloride Level 95 mEQ/L (98-107) L Carbon Dioxide Level 23 mEQ/L (20-30) Anion Gap 14 (5-15) Blood Urea Nitrogen 14 mg/dL (7-23) Creatinine 1.3 mg/dL (0.7-1.2) H Estimat Glomerular Filtration Rate mL/min (>60) Glucose Level 93 mg/dL (74-106) Calcium Level 8.8 mg/dL (8.6-10.2) Vancomycin Level Trough 12.1 ug/mL (5.0-12.0) H Current Medications Medications (Trade) Dose Ordered Sig/Dia Route PRN Reason Start Time Stop Time Status Last Admin Dose Admin Acetaminophen (Tylenol) 650 mg Q4H PRN ORAL Mild Pain (Pain Scale 1-3) 03/25/16 23:00 04/24/16 22:59 03/28/16 16:37 Acetaminophen (Tylenol) 650 mg Q4H PRN ORAL fever 03/25/16 23:00 04/24/16 22:59 Acetaminophen (Tylenol) 650 mg Q4H PRN RECTAL Mild Pain (Pain Scale 1-3) 03/25/16 23:00 04/24/16 22:59 Acetaminophen (Tylenol) 650 mg Q4H PRN RECTAL fever 03/25/16 23:00 04/24/16 22:59 Al Hydroxide/Mg Hydroxide (Mylanta) 30 ml EVERY 2 HOURS PRN ORAL Heartburn 03/27/16 20:00 04/26/16 19:59 03/27/16 20:19 Albuterol Sulfate (Proventil) 2.5 mg Q4HRT HHN 03/26/16 15:00 03/31/16 14:59 03/28/16 03:22 Benzonatate (Tessalon Perles) 100 mg THREE TIMES A DAY ORAL 03/28/16 15:00 04/27/16 14:59 03/29/16 14:16 Dextrose (Dextrose 50%) STAT PRN IV Hypoglycemia 03/25/16 23:00 04/24/16 22:59 Guaifenesin/ Codeine Phosphate (Robitussin with codeine) 5 ml Q4H PRN ORAL For Cough 03/28/16 10:15 04/27/16 10:14 03/28/16 14:41 Heparin Sodium (Porcine) (Heparin 5000 units/ml) 5,000 units EVERY 12 HOURS SUBQ 03/26/16 09:00 04/25/16 08:59 03/29/16 11:30 Heparin Sodium/ Sodium Chloride (Heparin 2000 units/Ns 1000ml premix) 2,000 unit ONCE INJ 03/29/16 09:45 03/31/16 23:59 Lidocaine HCl (Xylocaine 1% 30ml) 30 ml ONCE INJ 03/29/16 09:45 03/31/16 23:59 Magnesium Hydroxide (Mom) 30 ml HSPRN PRN ORAL Constipation 03/25/16 23:00 04/24/16 22:59 Nitroglycerin (Ntg) 0.4 mg Q5M X 3 DOSES PRN SL Prn Chest Pain 03/25/16 23:00 04/24/16 22:59 Non-Formulary Medication (Non-Formulary Med) 1 ea BID ORAL 03/26/16 12:00 03/30/16 18:01 03/29/16 11:31 Ondansetron HCl (Zofran) 4 mg Q6H PRN IVP Nausea & Vomiting 03/25/16 23:00 04/24/16 22:59 Ranitidine HCl (Zantac) 300 mg BEDTIME ORAL 03/27/16 21:00 04/26/16 20:59 03/28/16 20:16 Rifampin (Rifadin) 300 mg EVERY 12 HOURS ORAL 03/29/16 21:00 04/28/16 20:59 Sodium Bicarbonate (Sodium Bicarbonate) 50 ml ONCE IV 03/29/16 09:45 03/31/16 23:59 Trimethoprim/ Sulfamethoxazole (Bactrim-DS) 1 ea TWICE A DAY ORAL 03/29/16 18:00 04/05/16 17:59 Vancomycin HCl 1 ea 1 ea DAILY PRN MISC PER RX PROTOCOL 03/27/16 11:15 04/26/16 09:29 Vancomycin HCl/ Dextrose (Vancomycin/D5W 250ml) 250 ml @ 166.667 mls/hr Q24H IVPB 03/27/16 12:00 04/01/16 11:59 03/28/16 14:09 LEAH BURK Mar 29, 2016 17:20
--- NOTE | 2016-03-29 18:57 | Progress Note ---
DATE: 03/28/2016 CARDIOLOGY PROGRESS NOTE SUBJECTIVE: The patient has coagulase-negative Staph bacteremia, aortic valve prosthesis, as well as the pacemaker. The patient is on IV antibiotics. The patient is at increased risk for endocarditis. OBJECTIVE: VITAL SIGNS: Blood pressure is 130/71, pulse rate 66, respiratory rate 18, and afebrile, T-max is 100 degrees. LUNGS: Coarse breath sounds. CARDIAC: Regular rhythm and rate. Normal S1 and S2. A 1/6 systolic murmur at the base. ABDOMEN: Soft. EXTREMITIES: No edema. IMPRESSION: 1. 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 2. Permanent pacemaker. 3. Influenza A. PLAN: 1. Recommend treatment for endocarditis. 2. We will consider transesophageal echocardiogram. However at this time, we will not exchange architect. 3. May consider outpatient CHRISTI based on clinical parameters. Jayjay Peck M.D. DR: SCOTTIE/ialna JOB#: [id number] CC:
[2016-03-29 20:00] VITALS: BP 143/75
[2016-03-29] MEDS: Bactrim DS (160mg/800mg) tab ORAL SCH (21:12)
[2016-03-30] VITALS: BP 147/71
[2016-03-30] MEDS: Albuterol ud Inhalation HHN SCH ×3 (03:00→11:00)
[2016-03-30 04:00] VITALS: BP 136/56
--- NOTE | 2016-03-30 04:37 | Progress Note ---
DATE: 03/29/2016 CARDIOLOGY PROGRESS NOTE SUBJECTIVE: The patient was scheduled for a transesophageal echocardiogram at 10 a.m. today. The patient was made aware of the indication, risk, and procedure, but refused to proceed. He was made aware of the risks of not undergoing the procedure, however, he was also advised that he could complete it at a later date. OBJECTIVE: VITAL SIGNS: Blood pressure 120/83, pulse 79, and respirations 18. HEENT: Conjunctivae are pink. Oropharynx clear. NECK: Supple. LUNGS: Clear. CARDIAC: Regular rhythm rate. Normal S1, S2. A 1/6 systolic murmur at base. A 1/4 diastolic decrescendo. ABDOMEN: Soft. EXTREMITIES: No edema. LABORATORY DATA: White count 5.3, hemoglobin 9.3. Sodium 132, potassium 4.8, bicarbonate 23, BUN 14, and creatinine 1.3. IMPRESSION: 1. Prosthetic aortic valve. 2. Permanent pacemaker. 3. High risk for prosthetic valve endocarditis. 4. Coagulase-negative staphylococcus bacteremia. 5. Influenza. PLAN: Antibiotics per Infectious Diseases peoplesoft financials consultant, would recommend 46-week course. Would recommended transesophageal echocardiogram towards the end of the 46-week period to reassess valve status and ensure that no abscess formation has occurred. Periodic EKG monitoring will assist should any heart blocks develop, otherwise central access for antibiotics should be obtained and discharge planning can proceed. Jayjay Peck M.D. DR: CHRISTINE JOB#: [id number] CC:
[2016-03-30 08:07] LABS: OSMOLALITY SERUM 260 mOsm/kg (278-305)
[2016-03-30 08:41] VITALS: BP 148/72
[2016-03-30] MEDS: Bactrim DS (160mg/800mg) tab ORAL SCH (09:29)
[2016-03-30] MEDS: Benzonatate 100mg Perles ORAL SCH (09:29)
[2016-03-30] MEDS: Heparin 5000 units/ml inj SUBQ SCH (09:32)
[2016-03-30] MEDS: TAMIFLU 30 MG ORAL SCH (09:32)
[2016-03-30] MEDS: Vancomycin 1250mg/D5W 250ml IVPB SCH ×2 (12:00)
[2016-03-30 12:10] VITALS: BP 137/69
--- NOTE | 2016-03-30 18:02 | Cardiology Report ---
APPROVED REPORT EKG Measurement Heart [id number] Sinus rhythm with 1st degree AV block Right bundle branch block Left anterior fascicular block Bifascicular block Abnormal ECG
--- NOTE | 2016-03-31 05:18 | Progress Note ---
DATE: 03/30/2016 CARDIOLOGY PROGRESS NOTE SUBJECTIVE: The patient had a PICC line placed last evening. He continues to refuse transesophageal echocardiogram. He is willing to consider this study as an outpatient during his treatment for endocarditis. OBJECTIVE: VITAL SIGNS: Blood pressure 137/69, pulse 67, respirations 20, and afebrile. NECK: Supple. LUNGS: Clear. CARDIAC: Regular rhythm and rate. Normal S1 and S2. A 1/6 systolic murmur at base. ABDOMEN: Soft and nontender. EXTREMITIES: No edema. PICC entry site is without drainage or erythema. IMPRESSION: 1. 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 2. Permanent pacemaker. 3. Aortic valve prosthesis. 4. Influenza A. PLAN: 1. Antibiotics x6 weeks for coag-negative Staph aureus. 2. Monitor clinical parameters. 3. Monitor electrocardiogram for signs of heart block, which may be associated with development of abscess. Transesophageal echocardiogram could follow. Jayjay Peck M.D. DR: Bradley JOB#: [id number] CC:
--- NOTE | 2016-03-31 05:48 | Discharge Summary ---
DATE OF ADMISSION: 03/25/2016 DATE OF DISCHARGE: 03/30/2016 PERTINENT HISTORY: The patient is admitted with cough, influenza, and weakness. There is a history of aortic valve replacement and permanent pacemaker. PERTINENT PHYSICAL FINDINGS: GENERAL: The patient is alert, having a moderate cough. LUNGS: Show cough with bronchospasm and mild wheezing. HEART: Regular rhythm. ABDOMEN: Soft. No organomegaly. EXTREMITIES: No edema. NEUROLOGIC: He is alert and oriented. COURSE IN THE HOSPITAL: The patient had a positive influenza test and was given Tamiflu. He also had 4/4 bottles. Blood culture is positive for coag-negative staphylococcus and was treated with vancomycin. He had hyponatremia, which improved during the hospitalization. anemia. The patient was seen by Dr. Jayjay Peck in cardiology consultation and by Dr. Mccray in infectious diseases consultation. The echocardiogram did not show any vegetations, but in view of the clinical history it was felt that he had a subacute bacterial endocarditis on the aortic valve and a six-week course of vancomycin was recommended. After detailed discussion, a PICC line was placed and the patient was stabilized and discharged home in stable condition. FINAL DIAGNOSES: 1. 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 2. History of aortic valve prosthesis. 3. Influenza. 4. Anemia of chronic disease. 5. Hyponatremia. 6. Asthmatic bronchitis. 7. Anemia of chronic disease. DISCHARGE DISPOSITION: He was discharged home on a regular diet and his usual medications prior to admission plus vancomycin IV as per pharmacy dosing and he will be followed by home health nurse. He will follow up in the office of Dr. Gavin Jo. Alan Mckeon M.D. DR: Tk JOB#: [id number] CC:
--- NOTE | 2016-04-06 00:22 | Physician Query ---
PLEASE COMPLETE THE DOCUMENT BEFORE SIGNING Dear Dr. HOLLEY Date: 04/05/16 Independent Video Producer/CDS Name: TAWANA SANTAMARIA, SABRINA Exercise your independent professional judgment when responding to query. Question asked do not imply a particular answer is desired/expected Clinical Documentation States: CHIEF COMPLAINT AND REASON FOR HOSPITALIZATION: The patient admitted with cough, influenza, weakness, and probable pneumonia. COURSE IN THE HOSPITAL: The patient had a positive influenza test and was given Tamiflu. He also had 4/4 bottles. Blood culture is positive for coag-negative staphylococcus and was treated with vancomycin. 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 DR BURK READS: 1) coagulase neg staph bacteremia, sepsis, sirs, fevers, leukocytosis - leukocytosis and fevers resolved Clinical Findings: 03/25/16 - WBC 13.1 Please clarify: [ ] Bacteremia due to Coagulase-negative staphylococcus [ ] Sepsis due to Coagulase-negative staphylococcus [ ] Severe Sepsis due to Coagulase-negative staphylococcus [ ] Septicemia due to Coagulase-negative staphylococcus [ ] Other: [ ] None of the above Condition Present on Admission: [] Yes [] No []Clinically Undeterminable Please also document in your Progress Notes and/or Discharge Summary and indicate if the condition was present on admission. BATSHEVA HOLELY M.D. DATE & TIME [facility]
--- NOTE | 2016-04-06 14:56 | Diagnostic Imaging Report ---
Indications: Long-term central IV access required for intravenous therapy Technique: The procedure indications, risks, and alternatives were explained to the patient who understands and gives consent to proceed. Strict aseptic technique was utilized, including hand washing, use of hat and mask, use of sterile gown and gloves, sterile ultrasound gel and probe cover, prepping of right arm skin with 2% chlorhexidine solution, and application of full body sterile barrier over this area. Skin and subcutaneous soft tissues were infiltrated with 1% lidocaine and sodium bicarbonate. A small dermatotomy was made, through which the patent adequate size right basilic vein was punctured percutaneously under direct sonographic guidance with a 21-gauge needle. Exchange was made over a 0.018 inch guidewire for a 5 Guyanese peel-away sheath. A [employer] Power-PICC 5 [place]ese dual lumen central venous catheter was cut to appropriate length, then advanced through the sheath over the guidewire under direct fluoroscopic guidance into the superior vena cava. Guidewire and sheath were removed. Both catheter ports were aspirated, then flushed with heparinized saline. Final image was obtained. Catheter was secured the skin with adhesive dressing. Patient tolerated procedure well without immediate complications. Total fluoroscopy time: 0.1 minutes. Dose-area product: 2.7 dGy-cm2 Findings: Final image demonstrates tip of the central venous catheter at the level of superior vena cava-right atrial junction, 23 cm in from the skin. Both ports aspirate and flush freely. IMPRESSION: Placement of peripherally inserted central venous catheter via right basilic vein, working well.
--- NOTE | 2016-04-11 11:07 | Physician Query ---
PLEASE COMPLETE THE DOCUMENT BEFORE SIGNING Dear Dr. MCKEON Date: 04/11/16 Medical Lab Technician/CDS Name: TAWANA SANTAMARIA, SABRINA Exercise your independent professional judgment when responding to query. Question asked do not imply a particular answer is desired/expected Clinical Documentation States: CHIEF COMPLAINT AND REASON FOR HOSPITALIZATION: The patient admitted with cough, influenza, weakness, and probable pneumonia. COURSE IN THE HOSPITAL: The patient had a positive influenza test and was given Tamiflu. He also had 4/4 bottles. Blood culture is positive for coag-negative staphylococcus and was treated with vancomycin. 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 DR BURK READS: 1) coagulase neg staph bacteremia, sepsis, sirs, fevers, leukocytosis - leukocytosis and fevers resolved Clinical Findings: 03/25/16 - WBC 13.1 Dr Mckeon, Can you please clarify the following: [ ] Bacteremia due to Coagulase-negative staphylococcus [ x] Sepsis due to Coagulase-negative staphylococcus [ ] Severe Sepsis due to Coagulase-negative staphylococcus [ ] Septicemia due to Coagulase-negative staphylococcus [ ] Other: [ ] None of the above Condition Present on Admission: [x] Yes [] No []Clinically Undeterminable Please also document in your Progress Notes and/or Discharge Summary and indicate if the condition was present on admission. BATSHEVA MCKEON M.D. DATE & TIME [facility]
== END 2016-03-30 13:30 | disposition home health service (06) | DRG 871 ==
LOC: ENRESERVTM → ENRESERVDT → EDBD 19:58 → EMR 22:17 → INTOOBSV 22:25 → OBSVTOIN 22:25 → 4W 22:25 → EDBEDREQ 03-26 00:11
PROC: 02HV33Z Insertion of Infusion Device into Superior Vena Cava, Percutaneous Approach (ICD-10-PCS; principal; 2016-03-30)
DX: A41.1 Sepsis due to other specified staphylococcus (principal); I33.9 Acute and subacute endocarditis, unspecified; D63.8 Anemia in other chronic diseases classified elsewhere; D64.9 Anemia, unspecified; E87.1 Hypo-osmolality and hyponatremia; I10 Essential (primary) hypertension; J11.1 Influenza due to unidentified influenza virus with other respiratory manifestations; Z88.0 Allergy status to penicillin; Z95.0 Presence of cardiac pacemaker; Z95.2 Presence of prosthetic heart valve; J45.909 Unspecified asthma, uncomplicated; I35.8 Other nonrheumatic aortic valve disorders; N40.0 Benign prostatic hyperplasia without lower urinary tract symptoms; R10.13 Epigastric pain; R35.1 Nocturia; E07.9 Disorder of thyroid, unspecified; E55.9 Vitamin D deficiency, unspecified; R97.20 Elevated prostate specific antigen [PSA]
CPT/HCPCS: 36415; 36569; 71010; 76937; 80048; 80053; 80202; 81003; 82550; 82553; 82607; 82728; 82746; 82962; 83540; 83550; 83605; 83735; 83880; 83930; 83935; 84439; 84443; 84484; 84550; 85025; 86710; 87040; 87181; 93005; 93306; 94640; 94664